=== PATIENT | male | born 1975 | race African-American/Black ===

== ENCOUNTER 2017-05-15 20:32 | Emergency (ER) | payer OTHER ==
[2017-05-15 20:42] VITALS: BP 165/104; PULSE 100; TEMP 98.8; BMI 39.9
[2017-05-15] MEDS ORDERED: ALBUTEROL SO4 2.5/IPRATROPIUM 0.5 INH SOL 3 ML VIAL.NEB. NEB ONE ×2 (20:53→20:59)
--- NOTE | 2017-05-15 20:58 | PDOC ---
History of Present Illness - General Chief Complaint: Cold Symptoms Stated Complaint: COUGH/SORE THROAT/EARACHE Time Seen by Provider: 05/15/17 20:44 History Source: Patient Exam Limitations: No Limitations - History of Present Illness Initial Comments: 05/15/17 20:54 42yo Male patient w/ PmHx ESRD (Dialysis), Asthma, HTN presents to ED with 4 day history of sore throat and coughing x 2 days w/ wheezing. Patient states his daughter recently came home with "cold" and thinks he may have gotten from her. He denies any other complaints at this time. Patient states, "I otherwise feel good." Timing/Duration: reports: week Severity: reports: mild Possible Cause: Yes: illness exposure Modifying Factors: worse with: activity, albuterol inhaler, albuterol nebulizer , antibiotics, coughing, lying down, oxygen, rest, other Associated Symptoms: reports: cough, nasal congestion, sore throat Past History - Travel Traveled outside of the country in the last 30 days: No Close contact w/someone who was outside of country & ill: No - Past Medical History Allergies/Adverse Reactions: Allergies Allergy/AdvReac Type Severity Reaction Status Date / Time No Known Drug Allergies Allergy Verified 05/15/17 20:36 Home Medications: Ambulatory Orders Levalbuterol Tartrate [Xopenex Hfa] 2 inh IH DAILY PRN 09/16/12 Amiodarone HCl [Cordarone -] 200 mg PO DAILY 10/29/13 Metoprolol Tartrate [Lopressor -] 200 mg PO BID 10/29/13 Clonidine HCl [Catapres -] 0.2 mg PO BID 08/13/15 Albuterol Sulfate Inhaler - [Ventolin HFA Inhaler -] 1 - 2 inh PO Q4H PRN #1 inhaler 05/15/17 Levofloxacin [Levaquin -] 500 mg PO DAILY #5 tablet 05/15/17 Methylprednisolone [Medrol Dose Peng] 4 mg PO ASDIR #21 tablet 05/15/17 Anemia: No Asthma: Yes Cancer: No Cardiac Disorders: Yes (A-fib) CVA: No COPD: No CHF: No Dementia: No Diabetes: No Dialysis: Yes (M-W-F) GI Disorders: No Disorders: No HTN: Yes Hypercholesterolemia: No Liver Disease: No Seizures: No Thyroid Disease: No - Surgical History Abdominal Surgery: No Appendectomy: No Cardiac Surgery: No Cholecystectomy: No Lung Surgery: No Neurologic Surgery: No Orthopedic Surgery: No - Psycho/Social/Smoking Cessation Hx Anxiety: No Suicidal Ideation: No Smoking Status: No Smoking History: Never smoked Have you smoked in the past 12 months: No Number of Cigarettes Smoked Daily: 0 Information on smoking cessation initiated: No Hx Alcohol Use: No Drug/Substance Use Hx: No Substance Use Type: None Hx Substance Use Treatment: No Respiratory Specific PMHX - Complaint Specific PMHX Angina: No Bronchitis: No Pneumonia: No Pulmonary Embolus: No TB (Tuberculosis): No Review of Systems - Review of Systems Able to Perform ROS?: Yes Is the patient limited Malay proficient: No Constitutional: No: Chills, Fever HEENTM: Yes: Ear Pain, Throat Pain. No: Nose Congestion Respiratory: Yes: Cough, Wheezing Cardiac (ROS): No: Chest Pain, Lightheadedness, Palpitations, Syncope, Chest Tightness Musculoskeletal: No: Back Pain Integumentary: No: Bruising, Erythema, Rash Neurological: No: Headache, Seizure, Dizziness All Other Systems: Reviewed and Negative *Physical Exam - Vital Signs Last Vital Signs Temp Pulse Resp BP Pulse Ox 98.8 F 100 H 20 165/104 92 L 05/15/17 20:37 05/15/17 20:37 05/15/17 20:37 05/15/17 20:37 05/15/17 20:37 - Physical Exam General Appearance: Yes: Nourished, Appropriately Dressed. No: Apparent Distress, Mild Distress, Moderate Distress, Severe Distress HEENT: positive: EOMI, LIZANDRO, Normal ENT Inspection, Normal Voice, Symmetrical, TMs Normal, Pharynx Normal. negative: Pharyngeal Erythema, Nasal Congestion, Rhinorrhea, TM Bulging, TM Dull, TM Erythema Neck: positive: Trachea midline, Supple. negative: Stridor, Lymphadenopathy (R) , Lymphadenopathy (L) Respiratory/Chest: positive: Wheezing (Inspiratory and Expiratory wheezing in all lung herrera.) Cardiovascular: positive: Tachycardia Gastrointestinal/Abdominal: positive: Normal Bowel Sounds, Soft, Distended, Other (Large). negative: Tender, Tenderness Musculoskeletal: positive: Normal Inspection. negative: CVA Tenderness Extremity: positive: Normal Capillary Refill, Normal Inspection, Normal Range of Motion. negative: Swelling, Calf Tenderness, Erythema, Inflammation Integumentary: positive: Normal Color, Dry, Warm Neurologic: positive: pantry attendant II-XII NML intact, Fully Oriented, Alert, Normal Mood/ Affect, Normal Response, Motor Strength 5/5 *DC/Admit/Observation/Transfer Diagnosis at time of Disposition: Pneumonia Qualifiers: Pneumonia type: due to unspecified organism Laterality: bilateral Lung location : lower lobe of lung Qualified Code(s): J18.9 - Pneumonia, unspecified organism - Discharge Dispostion Disposition: HOME Condition at time of disposition: Stable Admit: No - Prescriptions Prescriptions: Levofloxacin [Levaquin -] 500 mg PO DAILY #5 tablet Methylprednisolone [Medrol Dose Peng] 4 mg PO ASDIR #21 tablet Albuterol Sulfate Inhaler - [Ventolin HFA Inhaler -] 1 - 2 inh PO Q4H PRN #1 inhaler PRN Reason: Trouble breathing - Patient Instructions Printed Discharge Instructions: DI for Viral Upper Respiratory Infection -- Adult, DI for Pneumonia -- Adult Additional Instructions: FOLLOW UP WITH YOUR PRIMARY CARE PROVIDER WITHIN 48 HOURS FOR FURTHER EVALUATION. TAKE MEDICATIONS PRESCRIBED. RETURN IF SYMPTOMS WORSEN OR ANY CONCERNS FOR FURTHER EVALUATION. Print Language: SERBIAN
[2017-05-15] MEDS ORDERED: predniSONE 20 MG TABLET (UD) PO ONE (22:21)
[2017-05-15] MEDS ORDERED: LEVOFLOXACIN 500 MG TABLET (FP) PO ONE (22:21)
[2017-05-15] MEDS ORDERED: predniSONE 20 MG TABLET (UD) ONE (22:41)
[2017-05-15] MEDS ORDERED: LEVOFLOXACIN 500 MG TABLET (FP) ONE (22:42)
== END 2017-05-15 23:14 | disposition home or self-care (01) ==
LOC: JER 20:32
PROC: 3E0F7GC Introduction of Other Therapeutic Substance into Respiratory Tract, Via Natural or Artificial Opening (ICD-10-PCS; principal; 2017-05-15)
DX: J18.9 Pneumonia, unspecified organism (principal); J45.909 Unspecified asthma, uncomplicated; I12.0 Hypertensive chronic kidney disease with stage 5 chronic kidney disease or end stage renal disease; N18.6 End stage renal disease; N17.8 Other acute kidney failure; Z99.2 Dependence on renal dialysis
CPT/HCPCS: 71020-TC; 94640; 99283-25

== ENCOUNTER 2018-07-22 09:50 | Emergency (ER) | payer OTHER ==
[2018-07-22 10:03] VITALS: BP 143/100; PULSE 80; TEMP 98.5; BMI 38.2
[2018-07-22] MEDS ORDERED: IBUPROFEN 600 MG TABLET (FP) PO ONE ×2 (10:55→11:03)
--- NOTE | 2018-07-22 11:05 | PDOC ---
History of Present Illness - General Chief Complaint: Pain Stated Complaint: RIGHT ARM IN PAIN Time Seen by Provider: 07/22/18 10:42 History Source: Patient Exam Limitations: No Limitations - History of Present Illness Initial Comments: 07/22/18 10:56 43 year old male with pmh of ESDR on dialysis MWF, and asthma present with pain in right forearm x 7 days. States recall bumping arm while in the car. States pain worse with movement of right arm. Took no medication so far. Denies numbness or tingling in limb Occurred: reports: other (one week ) Severity: reports: moderate Upper Extremity Pain Location: right: forearm Method of Injury: reports: unknown Modifying Factors: improves with: None Extremity Pain Location - Extremity Pain Location Extremity Pain Locations: right: forearm Past History - Past Medical History Allergies/Adverse Reactions: Allergies Allergy/AdvReac Type Severity Reaction Status Date / Time No Known Drug Allergies Allergy Verified 07/22/18 09:57 Home Medications: Ambulatory Orders Levalbuterol Tartrate [Xopenex Hfa] 2 inh IH DAILY PRN 09/16/12 Amiodarone HCl [Cordarone -] 200 mg PO DAILY 10/29/13 Metoprolol Tartrate [Lopressor -] 200 mg PO BID 10/29/13 cloNIDine HCL [Catapres -] 0.2 mg PO BID 08/13/15 Albuterol Sulfate Inhaler - [Ventolin HFA Inhaler -] 1 - 2 inh PO Q4H PRN #1 inhaler 05/15/17 Ibuprofen [Ibu] 600 mg PO TID #15 tablet 07/22/18 Anemia: No Asthma: Yes Cancer: No Cardiac Disorders: Yes (A-fib) CVA: No COPD: No CHF: No Dementia: No Diabetes: No Dialysis: Yes (M-W-F) GI Disorders: No Disorders: No HTN: Yes Hypercholesterolemia: No Liver Disease: No Seizures: No Thyroid Disease: No - Surgical History Abdominal Surgery: No Appendectomy: No Cardiac Surgery: No Cholecystectomy: No Lung Surgery: No Neurologic Surgery: No Orthopedic Surgery: No - Suicide/Smoking/Psychosocial Hx Smoking Status: No Smoking History: Never smoked Have you smoked in the past 12 months: No Number of Cigarettes Smoked Daily: 0 Hx Alcohol Use: No Drug/Substance Use Hx: No Substance Use Type: None Hx Substance Use Treatment: No Review of Systems - Review of Systems Able to Perform ROS?: Yes Is the patient limited Kittitian proficient: No Constitutional: No: Chills, Fever HEENTM: No: Nose Congestion, Throat Swelling Respiratory: No: See HPI, Cough, Orthopnea, Shortness of Breath, Wheezing, Productive cough Cardiac (ROS): No: Chest Pain, Lightheadedness, Palpitations Musculoskeletal: Yes: Other (right arm pain) Integumentary: Yes: Erythema Neurological: No: Numbness, Paresthesia, Weakness Endocrine: No: Change in Weight Hematologic/Lymphatic: No: Blood Clots, Lymph Node Abnormalities *Physical Exam - Vital Signs Last Vital Signs Temp Pulse Resp BP Pulse Ox 98.5 F 80 19 143/100 98 07/22/18 09:58 07/22/18 09:58 07/22/18 09:58 07/22/18 09:58 07/22/18 09:58 - Physical Exam General Appearance: Yes: Nourished, Appropriately Dressed. No: Apparent Distress HEENT: positive: EOMI, LIZANDRO, TMs Normal, Pharynx Normal Neck: positive: Supple. negative: Lymphadenopathy (R), Lymphadenopathy (L) Respiratory/Chest: positive: Lungs Clear, Normal Breath Sounds. negative: Respiratory Distress Cardiovascular: positive: Regular Rhythm, Regular Rate, S1, S2 Extremity: positive: Normal Capillary Refill Neurologic: positive: certified massage therapist II-XII NML intact, Fully Oriented, Alert, Normal Mood/ Affect ED Treatment Course - RADIOLOGY Radiology Studies Ordered: Category Date Time Status ELBOW-RIGHT [RAD] Stat Radiology 07/22/18 10:55 Ordered FOREARM- RIGHT [RAD] Stat Radiology 07/22/18 10:55 Ordered Medical Decision Making - Medical Decision Making 07/22/18 11:08 43 year old male with pmh of ESRD, dialysis MWF complaining of right arm pain x 7 days analgesia xray ordered 07/22/18 13:29 pain relieved by ibuprofen xray of forearm is negative for fracture xray of elbow shows abnormality of elbow; patient cannot extend arm completely reports old injury from 3 years ago. will d/c with ibuprofen and ortho follow up *DC/Admit/Observation/Transfer Diagnosis at time of Disposition: Arm pain, right - Discharge Dispostion Disposition: HOME Condition at time of disposition: Good Decision to Admit order: No - Prescriptions Prescriptions: Ibuprofen [Ibu] 600 mg PO TID #15 tablet - Referrals Referrals: Elizabeth Ruelas MD [Primary Care Provider] - Jose Sánchez MD [Staff Physician] - - Patient Instructions Printed Discharge Instructions: DI for Arm Pain Additional Instructions: Please call orthopedic for follow up appointment if pain persist May take ibuprofen for pain, take with food Return to ed for worsening of symptoms - Post Discharge Activity Forms/Work/School Notes: Back to Work
== END 2018-07-22 13:42 | disposition home or self-care (01) ==
LOC: JERFT 09:50
DX: M79.631 Pain in right forearm (principal); I12.0 Hypertensive chronic kidney disease with stage 5 chronic kidney disease or end stage renal disease; N18.6 End stage renal disease; Z99.2 Dependence on renal dialysis; I48.91 Unspecified atrial fibrillation
CPT/HCPCS: 73070-TC-RT-FY; 73090-TC-RT-FY; 99281-25